=== PATIENT | female | born 1965 | race Caucasian/White ===

== ENCOUNTER → 2017-06-27 | Outpatient (CLI) | payer MEDICAID ==
[~2017-06-27] MED LIST: AMOX-559 PO; BENZ200C15 PO; CEPH-13 PO; CEPH500C24 PO; CHOL500025 PO; CYCL10TA29 PO; FAMO40TA8 PO; FLU45SYR25 IM ONLY; FURO-45 PO; IBUP-1687 PO; LEVO-85 PO; LEVO750T27 PO; LISI-362 PO; LISI20TA29 PO; MOMR ENA; MUPI22OI28 TP; OMEP40CA48 PO; OXYM-1 ENA; POTA-23 PO; SIMV10TA98 PO; VALA500T63 PO
== END ==
LOC: LAB 11:45
PROVIDERS: ATTEND Nurse Practitioner Family
DX: I10 Essential (primary) hypertension (principal); R94.6 Abnormal results of thyroid function studies; R79.89 Other specified abnormal findings of blood chemistry
CPT/HCPCS: 36415; 82306; 82310; 82374; 82435; 82565; 82947; 84132; 84295; 84443; 84520

== ENCOUNTER 2017-10-23 16:58 | Emergency (ER) | payer MEDICAID ==
[2017-10-23] MEDS ORDERED: NS(*) 0.9% 1000 ML BAG 1,000 ML IV ONE (17:11)
[2017-10-23] MEDS ORDERED: DILTIAZEM 5 MG/ML 5ML IVPUSH IVP ONE (17:15)
[2017-10-23] MEDS ORDERED: ASPIRIN 81 MG CHEW PO ONE (17:15)
[2017-10-23] MEDS ORDERED: DILTIAZEM HCL* 100 MG ADDVIAL 100 MG in NS(*) 0.9% 100 ML ADDVANT BAG 100 ML IV SCH (17:15)
--- NOTE | 2017-10-23 17:26 | EKG ---
FACILITY: [facility] PATIENT NAME: JULIO C TANG : [id number] MR: [id number] V: [id number] EXAM DATE: ORDERING PHYSICIAN: KATHLEEN DOSS TECHNOLOGIST: NOVA Hernandez Reason : PALPITATIONS Blood Pressure : / mmHG Vent. Rate : 157 BPM Atrial Rate : 166 BPM P-R Int : 000 ms QRS Dur : 076 ms QT Int : 296 ms P-R-T Axes : 000 066 023 degrees QTc Int : 478 ms Atrial fibrillation with rapid ventricular response ST abnormality, possible digitalis effect Abnormal ECG No previous ECGs available Confirmed by AYAD ANN ([id number]) on 10/24/2017 1:01:57 PM Referred By: FRANCISCO CLEMENS Confirmed By:AYAD ANN
[2017-10-23 17:33] LABS: PLATELET COUNT, AUTOMATED 233 K/uL (150-450)
--- NOTE | 2017-10-23 17:35 | ER Report ---
History and Physical Time Seen By MD: 17:00 Hx. of Stated Complaint: PT REPORTS FEELING HEART BEAT FAST HPI/ROS 52-year-old female a long-term type II of type II diabetic being treated for lymphedema has had redness and swelling in her right leg trace edema in her left. Tonight be getting to feel her heart racing has never had symptoms like this before at that point she came to the emergency room for treatment Allergies: Coded Allergies: codeine (Verified Allergy, Unknown, UNKNOWN, 03/27/16) Home Meds Active Scripts Lisinopril (LISINOPRIL) 20 Mg Tablet, 1 TAB PO QDAY, #90 TAB 0 Refills Prov:ALAN DAVILA APRN-C 10/23/17 Benzonatate (BENZONATATE) 200 Mg Capsule, 1 CAP PO TID Y for COUGH, #30 CAPSULE 0 Refills Prov:ALAN DAVILA APRN-C 07/30/17 Simvastatin (SIMVASTATIN) 10 Mg Tablet, 1 TAB PO HS, #90 TAB 3 Refills Prov:ALAN DAVILA APRN-C 06/13/17 Furosemide (FUROSEMIDE) 20 Mg Tablet, 1 TAB PO DAILY Y for lower leg swelling, # 30 TAB 5 Refills Prov:ALAN DAVILA APRN-C 03/29/17 Reported Medications Cholecalciferol (Vitamin D3) (VITAMIN D3) 5,000 Unit Tablet, 5000 UNIT PO BID, # 100 08/28/16 Ibuprofen (ADVIL) 200 Mg Tablet, 1-2 TAB PO Q6-8H 03/27/16 Oxymetazoline Hcl (AFRIN) 30 Ml [place], 2 SPR [place] BID, SPRAY 03/27/16 Discontinued Scripts Doxycycline Hyclate (DOXYCYCLINE HYCLATE) 100 Mg Capsule, 1 CAP PO BID, #20 CAPSULE 0 Refills Prov:ALAN DAVILA APRN-C 07/27/17 Cyclobenzaprine Hcl (CYCLOBENZAPRINE HCL) 10 Mg Tablet, 1 TAB PO TID Y for SPASMS, #30 TAB 2 Refills Prov:ALAN DAVILA APRN-C 07/27/17 Omeprazole (OMEPRAZOLE) 40 Mg Capsule.dr, 1 CAP PO QDAY, #90 CAP 3 Refills Prov:ALAN DAVILA APRN-C 04/03/17 Past Medical/Surgical History hypertension, diabetes, morbid obesity, lymphadema Reviewed Nurses Notes: Yes Hx Smoking: No Smoking Status: Never Smoker Exposure to Second Hand Smoke?: No Hx Substance Use Disorder: No Hx Alcohol Use: No Family History of: Cardiac Constitutional Vital Sign - Last 24 Hours 10/23/17 10/23/17 10/23/17 10/23/17 17:03 17:03 17:05 17:07 Temp 97.9 Pulse ??? 170 Resp 22 B/P (MAP) 165/126 165/126 (139) 135/103 (114) Pulse Ox 97 O2 Delivery Room Air 10/23/17 10/23/17 10/23/17 10/23/17 17:08 17:13 17:18 17:23 Pulse 140 147 130 110 Resp 20 13 Pulse Ox 97 97 98 97 10/23/17 10/23/17 10/23/17 10/23/17 17:28 17:30 17:33 17:38 Pulse 124 ? Resp 14 B/P (MAP) ???/??? (0395) Pulse Ox 81 10/23/17 10/23/17 10/23/17 10/23/17 17:41 17:43 17:48 17:50 Pulse 107 94 Resp 20 18 B/P (MAP) 131/92 (105) 120/85 (97) Pulse Ox 95 94 10/23/17 10/23/17 10/23/17 10/23/17 17:53 17:58 18:00 18:03 Pulse 92 92 91 Resp 12 15 16 B/P (MAP) 108/76 (87) Pulse Ox 94 95 95 10/23/17 10/23/17 10/23/17 10/23/17 18:08 18:10 18:13 18:18 Pulse 91 95 100 Resp 14 12 11 B/P (MAP) 137/94 (108) Pulse Ox 96 94 95 10/23/17 10/23/17 10/23/17 10/23/17 18:20 18:23 18:28 18:30 Pulse 93 97 Resp 17 24 B/P (MAP) 136/89 (105) 128/99 (109) Pulse Ox 96 96 10/23/17 10/23/17 10/23/1718 18:33 18:38 18:40 18:43 Pulse 96 96 97 Resp 21 13 20 B/P (MAP) 108/77 (87) Pulse Ox 95 95 96 10/23/17 10/23/17 10/23/17 10/23/17 18:48 18:50 18:53 18:58 Pulse 96 95 92 Resp 15 17 12 B/P (MAP) 113/73 (86) Pulse Ox 95 97 95 10/23/17 10/23/17 10/23/17 10/23/17 19:00 19:10 19:13 19:20 Pulse 97 Resp 15 B/P (MAP) 113/83 (93) 114/77 (89) 121/84 (96) Pulse Ox 96 10/23/17 10/23/17 10/23/17 10/23/17 19:28 19:30 19:40 19:43 Pulse 96 92 Resp 15 19 B/P (MAP) 102/70 (81) 117/80 (92) Pulse Ox 94 97 10/23/17 10/23/17 19:50 19:58 Pulse 121 Resp 37 B/P (MAP) 116/83 (94) Physical Exam General Appearance: [The patient is alert,has no immediate need for airway protection and no current signs of toxicity.] [ ] Eyes: Pupils equal and round no injection. Respiratory: Chest is non tender, lungs decreased bilateral bases. C cardiac tachycardic irregular rhythm [ ] Gastrointestinal: Abdomen is soft and non tender, no masses, bowel sounds normal. Musculoskeletal: Neck: Neck is supple and non tender. Extremities redness swelling right lower extremity Skin: No rashes or lesions. [ ] DIFFERENTIAL DIAGNOSIS: After history and physical exam differential diagnosis was considered for new onset afib r/o dvt [ ] Medical Decision Making Data Points Result Diagram: 10/23/17 1720 10/23/17 1720 Laboratory Hematology Test 10/23/17 17:05 10/23/17 17:20 Red Blood Count 5.32 M/uL (4.17-5.56) Mean Corpuscular Volume 83.4 fL (80.0-96.0) Mean Corpuscular Hemoglobin 28.0 pg (26.0-33.0) Mean Corpuscular Hemoglobin Concent 33.5 g/dL (32.0-36.0) Red Cell Distribution Width 16.4 % (11.5-14.5) Mean Platelet Volume 9.3 fL (7.2-11.1) Neutrophils (%) (Auto) 64.2 % (39.4-72.5) Lymphocytes (%) (Auto) 24.6 % (17.6-49.6) Monocytes (%) (Auto) 7.7 % (4.1-12.4) Eosinophils (%) (Auto) 2.0 % (0.4-6.7) Basophils (%) (Auto) 1.5 % (0.3-1.4) Nucleated RBC Relative Count (auto) 0.1 /100WBC Neutrophils # (Auto) 6.5 K/uL (2.0-7.4) Lymphocytes # (Auto) 2.5 K/uL (1.3-3.6) Monocytes # (Auto) 0.8 K/uL (0.3-1.0) Eosinophils # (Auto) 0.2 K/uL (0.0-0.5) Basophils # (Auto) 0.2 K/uL (0.0-0.1) Nucleated RBC Absolute Count (auto) 0.01 K/uL Prothrombin Time 13.0 seconds (12.0-14.4) Prothromb Time International Ratio 0.98 Activated Partial Thromboplast Time 29 seconds (23-35) D-Dimer Quantitative (PE/DVT) 1.30 ug/ml (0-0.50) Sodium Level 140 mmol/L (137-145) Potassium Level 3.7 mmol/L (3.5-5.0) Chloride Level 104 mmol/L (98-107) Carbon Dioxide Level 23 mmol/L (22-31) Blood Urea Nitrogen 15 mg/dl (7-18) Creatinine 1.00 mg/dl (0.52-1.04) Glomerular Filtration Rate Calc 58.0 Random Glucose 128 mg/dl (75-110) Calcium Level 9.5 mg/dl (8.4-10.2) Total Bilirubin 0.5 mg/dl (0.2-1.3) Aspartate Amino Transf (AST/SGOT) 26 U/L (0-35) Alanine Aminotransferase (ALT/SGPT) 24 U/L (0-56) Alkaline Phosphatase 112 U/L (0-126) Troponin I < 0.012 ng/ml B-Type Natriuretic Peptide 92 pg/ml (0-100) Total Protein 7.4 gm/dl (6.3-8.2) Albumin 3.9 g/dl (3.5-5.0) Human Chorionic Gonadotropin, Qual Negative (NEGATIVE) Chemistry Test 10/23/17 17:05 10/23/17 17:20 White Blood Count 10.1 k/uL (4.5-11.0) Red Blood Count 5.32 M/uL (4.17-5.56) Hemoglobin 14.9 g/dL (12.0-16.0) Hematocrit 44.4 % (34.0-47.0) Mean Corpuscular Volume 83.4 fL (80.0-96.0) Mean Corpuscular Hemoglobin 28.0 pg (26.0-33.0) Mean Corpuscular Hemoglobin Concent 33.5 g/dL (32.0-36.0) Red Cell Distribution Width 16.4 % (11.5-14.5) Platelet Count 233 K/uL (150-450) Mean Platelet Volume 9.3 fL (7.2-11.1) Neutrophils (%) (Auto) 64.2 % (39.4-72.5) Lymphocytes (%) (Auto) 24.6 % (17.6-49.6) Monocytes (%) (Auto) 7.7 % (4.1-12.4) Eosinophils (%) (Auto) 2.0 % (0.4-6.7) Basophils (%) (Auto) 1.5 % (0.3-1.4) Nucleated RBC Relative Count (auto) 0.1 /100WBC Neutrophils # (Auto) 6.5 K/uL (2.0-7.4) Lymphocytes # (Auto) 2.5 K/uL (1.3-3.6) Monocytes # (Auto) 0.8 K/uL (0.3-1.0) Eosinophils # (Auto) 0.2 K/uL (0.0-0.5) Basophils # (Auto) 0.2 K/uL (0.0-0.1) Nucleated RBC Absolute Count (auto) 0.01 K/uL Prothrombin Time 13.0 seconds (12.0-14.4) Prothromb Time International Ratio 0.98 Activated Partial Thromboplast Time 29 seconds (23-35) D-Dimer Quantitative (PE/DVT) 1.30 ug/ml (0-0.50) Glomerular Filtration Rate Calc 58.0 Calcium Level 9.5 mg/dl (8.4-10.2) Total Bilirubin 0.5 mg/dl (0.2-1.3) Aspartate Amino Transf (AST/SGOT) 26 U/L (0-35) Alanine Aminotransferase (ALT/SGPT) 24 U/L (0-56) Alkaline Phosphatase 112 U/L (0-126) Troponin I < 0.012 ng/ml B-Type Natriuretic Peptide 92 pg/ml (0-100) Total Protein 7.4 gm/dl (6.3-8.2) Albumin 3.9 g/dl (3.5-5.0) Human Chorionic Gonadotropin, Qual Negative (NEGATIVE) Coagulation Test 10/23/17 17:20 Prothrombin Time 13.0 seconds Prothromb Time International Ratio 0.98 Activated Partial Thromboplast Time 29 seconds D-Dimer Quantitative (PE/DVT) 1.30 ug/ml EKG/Imaging EKG Interpretation afib with rvr ED Course/Re-evaluation Clinical Indication for ER IV: Hydration ED Course Patient is morbidly obese has elevated d-dimer unable to do a CTA chest here because of her weight our machine takes up to 450 pound she is 514 pounds tonight but did talk to Dr. Dupree in the ER at [facility] Re-evaluation Cardizem 20 IV drip of 5 mg an hour heart rate is now in the 90s converting in and out of sinus rhythm. Discussed the patient with Dr. Dupree emergency room [facility] he agrees to accept this patient will transfer her by ALS ambulance Decision to Disposition Date: October 23, 2017 Decision to Disposition Time: 19:[address] Reyes emergency room [facility] Depart Departure Latest Vital Signs Vital Signs Date Time Temp Pulse Resp B/P (MAP) Pulse Ox O2 Delivery O2 Flow Rate FiO2 10/23/17 19:58 121 37 10/23/17 19:50 116/83 (94) 10/23/17 19:43 97 10/23/17 17:03 97.9 Room Air Impression: Primary Impression: Morbid obesity Additional Impressions: Atrial fibrillation with RVR Elevated d-dimer Leg edema Condition: Improved Disposition: XFER TO [facility] Referrals: ALAN DAVILA APRN-C (PCP) Problem Qualifiers KATHLEEN DOSS October 23, 2017 17:35
[2017-10-23 17:43] LABS: INR 0.98
--- NOTE | 2017-10-23 18:36 | RADIOLOGY IMAGING REPORT ---
FACILITY: [facility] PATIENT NAME: Thu Michelle : 1965 MR: [id number] V: [id number] EXAM DATE: ORDERING PHYSICIAN: KATHLEEN DOSS TECHNOLOGIST: Location: [facility] [place] Patient: Thu Michelle : 1965 Visit/Account:[id number] Date of Sevice: 10/23/2017 CHEST SINGLE AP Indication: Chest pain and tachycardia.. Comparison: None available Findings: Cardiomediastinal silhouette and pulmonary vessels within normal limits for the technique. There is no focal infiltrate or lobar consolidation. No pneumothorax or pleural effusion. Small nodular opacity seen in the lateral aspect left upper lobe. Upper abdomen is unremarkable. No a cute bony abnormality. IMPRESSION: 1. No acute cardiopulmonary process. 2. Left upper lobe nodule. This is nonspecific and could be a granuloma. However, as there are no shashi or exams, suggest a follow-up chest x-ray in 6 months for reevaluation. Report Dictated By: Fuad Naylor at 10/23/2017 6:30 PM Report E-Signed By: Fuad Naylor at 10/23/2017 6:32 PM WSN:[id number]
--- NOTE | 2017-10-23 19:37 | RADIOLOGY IMAGING REPORT ---
FACILITY: [facility] - [place] PATIENT NAME: Thu Michelle : 1965 MR: [id number] V: [id number] EXAM DATE: ORDERING PHYSICIAN: KATHLEEN DOSS TECHNOLOGIST: Location: [facility] - [place] Patient: Thu Michelle : 1965 Visit/Account:[id number] Date of Sevice: 10/23/2017 Bilateral lower extremity duplex venous ultrasound Indication: Leg swelling. Atrial fibrillation. Comparison: None Available Findings: Duplex Doppler and color flow imaging was performed. The bilateral common femoral, femoral , and popliteal veins are all patent and compressible with normal Doppler wave forms. There are norm al responses to augmentation. The bilateral posterior tibial and peroneal veins are clear. The proximal greater saphenous veins are also normal. Subcutaneous tissues are unremarkable. Impression: 1. No evidence of deep venous thrombosis of the bilateral lower extremities. Report Dictated By: Fuad Naylor at 10/23/2017 7:32 PM Report E-Signed By: Fuad Naylor at 10/23/2017 7:33 PM WSN:[id number]
[2017-10-23 19:50] VITALS: BP 116/83
--- NOTE | 2017-10-23 20:37 | EKG ---
FACILITY: [facility] - [place] PATIENT NAME: JULIO C TANG : [id number] MR: [id number] V: [id number] EXAM DATE: ORDERING PHYSICIAN: KATHLEEN DOSS TECHNOLOGIST: NATHANAEL Hernandez Reason : REPEAT EKG Blood Pressure : / mmHG Vent. Rate : 116 BPM Atrial Rate : 116 BPM P-R Int : 130 ms QRS Dur : 080 ms QT Int : 326 ms P-R-T Axes : 063 066 051 degrees QTc Int : 453 ms Sinus tachycardia Possible Left atrial enlargement R wave progression consistent with old ant/sep SC vs lead placement When compared with ECG of 23-OCT-2017 17:06, Sinus rhythm has replaced Atrial fibrillation Now with poor R wave progression Confirmed by AYAD ANN ([id number]) on 10/24/2017 1:07:59 PM Referred By: Confirmed By:AYAD ANN
== END 2017-10-23 20:10 | disposition short-term general hospital (02) ==
LOC: ER 17:22
DX: E66.01 Morbid (severe) obesity due to excess calories (principal); I48.2 Chronic atrial fibrillation; R79.89 Other specified abnormal findings of blood chemistry; R60.0 Localized edema; R00.2 Palpitations; R07.89 Other chest pain; R91.1 Solitary pulmonary nodule; E11.9 Type 2 diabetes mellitus without complications; I10 Essential (primary) hypertension
CPT/HCPCS: 71045; 83880; 84443; 84484; 84703; 85025; 85379; 85610; 85730; 93005; 93970; 96361; 96365; 96366; 99285; J3490; J7030; J7050; 82040; 82247; 82310; 82374; 82435; 82565; 82947; 84075; 84132; 84155; 84295; 84450; 84460; 84520

== ENCOUNTER → 2017-10-23 | Outpatient (CLI) | payer MEDICAID ==
[~2017-10-23] MED LIST changes: +DOXY-181 PO
== END ==
LOC: AMB 21:24
PROVIDERS: ATTEND Nurse Practitioner
DX: I48.91 Unspecified atrial fibrillation (principal); E66.9 Obesity, unspecified
CPT/HCPCS: A0425; A0433

== ENCOUNTER 2017-11-21 13:00 | Outpatient (RCR) | payer MEDICAID ==
--- NOTE | 2017-09-28 15:54 | PT INITIAL EVALUATION ---
MEDICAL DIAGNOSIS: Intragluteal Cleft Skin Breakdown TREATMENT DIAGNOSIS: Moisture Associated Skin Damage of the Intragluteal cleft DATE OF ONSET: SUBJECTIVE: The patient presents today with skin break down in the intragluteal cleft, superior to the anus. The patient reports that she is unsure of when the skin breakdown occurred, but that she has struggled with monthly "rashes" for about 2 years. She reports that she has seen various doctors and a copper miner blasting for treatment for these rashes but has not received a definitive solution. There is no rash present at the time of evaluation, but the pt provided a photo when present,which depicted diffuse erythema across bilateral gluts. The patient has been aggressively cleansing the area with hydrogen peroxide, baby wipes and Clorox wipes per report. REHAB PROBLEM LIST: Open wound, pain PREVIOUS MEDICAL HISTORY: Morbid obesity, elevated BP, dyslipidemia OBJECTIVE: Wound Measurements: 10 cm L x 0.3 cm W x 0.1 cm D ASSESSMENT: Pt presents with skin breakdown of the superior portion of the intragluteal cleft, which is likely moisture associated skin damage d/t increased friction and moisture between skin folds. The break down is partial thickness with good healthy pink tissue present in the wound base, with the wound extending 10 cm towards the anus. PT cleansed the area with dimethicone wipes and then completed conservative, selective debridement of non-viable tissue and devitalized skin from the wound edges with tweezers to the depth of the dermis. The wound was patted dry and then treated with zinc based moisture barrier cream. An ABD pad was folded and tucked into the cleft to assist with wicking away moisture. The patient was instructed to leave ABD pad in place and only change if it becomes saturated or soiled, at which time she should re-apply generous amounts of moisture barrier cream and insert a new ABD pad. The patient was instructed to avoid shear to the area, as well as any aggressive wiping. The patient verbalized understanding and was sent home with appropriate supplies, as well as written instructions. The patient will benefit from skilled PT wound care and education and will follow up 10/03/17 for re-assessment and continuation of care. Short Term Goals 1: Pt to demonstrate ability to appropriately apply moisture barrier cream to the affected area as needed. 2: Pt to demonstrated ability to effectively manage moisture to assist with wound healing. 3: Wound to gradually epithelialize from the edges inward and demonstrate 100% closure 4: Pt to be educated on prevention strategies to avoid further breakdown, as well as appropriate skin care management. Patient's Goals: Wound healing PLAN: Patient to be seen for PT wound care to include conservative sharps debridement as well as advanced wound care product selection and application and patient education for preventative skin care and management 1-2x/week for up to 90 days Thank you for this referral. If you have any questions, comments, or concerns about this report or plan, please contact me at . Suly Pandey, PT, DPT MTDD
--- NOTE | 2017-10-03 16:23 | PT PLAN OF CARE ---
Physician: Dr. Cortes Patient is being seen: Thu Michelle Therapist: Suly Pandey, PT, DPT Medical Diagnosis: Intragluteal Cleft Skin Breakdown Treatment Diagnosis: Moisture Associated Skin Damage of the Intragluteal cleft Date of Onset: Pt unsure Date of Initial Evaluation: 09/28/17 Date patient was last seen: 09/23/17 Number of treatments: 2 Number of cancellations/No shows: 0 INTERVENTIONS: The pt was seen for initial wound care evaluation with skilled sharps debridement. She was educated on the etiology of the wound as well as effective management in order to heal the wound. The patient demonstrated excellent compliance and the ability to continue to manage the skin breakdown until it reaches full closure. GOALS: 1: Pt to demonstrate ability to appropriately apply moisture barrier cream to the affected area as needed. 2: Pt to demonstrated ability to effectively manage moisture to assist with wound healing. 3: Wound to gradually epithelialize from the edges inward and demonstrate 100% closure 4: Pt to be educated on prevention strategies to avoid further breakdown, as well as appropriate skin care management. PATIENT'S GOAL: Wound healing Status of Patient's Goals: met Patient Compliance: Excellent Prognosis: Good Reasons for continuing therapy: None at this time. The patient's wound is healing nicely with drastic decrease in size. Skilled sharps debridement is no longer indicated and the patient demonstrates the ability to effectively manage the area at home. GLADIS
--- NOTE | 2017-10-04 10:54 | PT INITIAL EVALUATION ---
MEDICAL DIAGNOSIS: Obesity, Wound Care, Lymphedema TREATMENT DIAGNOSIS: Obesity, Wound Care, Lymphedema, Lipedema DATE OF ONSET: 10/04/17 SUBJECTIVE: Thu is a 52 year-old patient presenting to physical therapy with a chronic gradual decline in mobility and function secondary to increase in body weight and circumferential volume of the R LE resulting in onset of wounds. Pt reports that she use to walk frequently, but hasn't as much and now cannot tolerate much physical exercise at all. Pt reports swelling started in the R leg approximately 10 years ago following a spider bite on the R distal brandon. Pt reports that it was worse than it is now and previously had areas of yellow/clear liquid weeping. Currently it's just swollen and pt has multiple locations where skin-folds are causing irritation and wound generation. Pt is concurrently seeing wound care PT for wounds on the R popliteal fossa as well as gluteal wounds. Additionally pt reports occasional radiating pain down the R LE shooting from the back to the foot along the lateral aspect of the foot. Pain comes and goes and occasionally just results in tingling sensation or muscle cramping. REHAB PROBLEM LIST: Increased Pain Decreased ROM Impaired Bed Mobility Decreased Strength Impaired Transfers Decreased Endurance Decreased Balance Decreased Function Decreased ADL's Decreased Mobility Decreased Gait PREVIOUS MEDICAL HISTORY: See EMR OBJECTIVE: Pt has bilateral symmetrical swelling from the iliac crests down to the ankles with foot sparing. Pt R brandon additionally has increased circumferential volume between the knee and the ankle with darkened skin coloration and firm texture on the anterior brandon. Strength: Pt unable to perform SLR B. Palpation: 2+ Pitting edema is present on the R anterior brandon but is negative throughout the rest of the B LE. (-) Stemmer's sign on B toes and dorsum. Mobility: Pt requires increased time and B UE support for transfers from seated< >standing. Gait: Gait significant for decreased foot clearance, and shortened step length B L>R with wide BOBBI. Pt uses a walker for long distance ambulation, but otherwise ambulates without AD around the house. Other Objective Findings: Circumferential Measures: Dorsum of foot (cm): B 21.5 , Above Malleoli: R 31.5, L 28.7, Heel: R 37.1, L 34.7, Figure 8: R 60.2, 57.4 , 15cm above Malleoli: R 58, L 38.5, Widest Calf: R 71, L 55, Below Patella: R 74, L 66.4, Above patella: R 73.5, L 71.5, 10 cm above Patella: R 89.7, L 85. ASSESSMENT: Pt shows signs and symptoms consistent with generalized deconditioning with associated lipedema, as well as R LE venous insufficiency with lymphatic changes. Physical therapy is indicated for this patient to address the above listed deficits to decrease circumferential volume of the R LE, improve wound healing potential, and improve functional mobility with ADL' s. Short Term Goals In 3 weeks pt will be compliant with HEP for strengthening and decreased edema for improved function with ADL's. In 3 weeks pt will decrease circumferential volume of the R LE by 20% compared to that of the L LE for decreased mass and improved mobility with ADL's. In 6 weeks pt will decrease circumferential volume of the R LE by 40% compared to that of the L LE for decreased mass and improved mobility with ADL's. In 6 weeks pt will be able to ambulate 3 laps around the track without need for rest breaks for improved ambulation with ADL's. In 6 weeks pt will be able to perform 10 SLR of B LE for improved mobility with ADL's. Patient's Goals Improve functional ambulation and mobility, decrease circumferential volume of R LE. PLAN: Patient to be seen for Manual Therapy/STM/MET Strengthening/condition Ice/Heat Range of Motion Spinal Stabilization Ultrasound Stretching Iontophoresis Neuromuscular Re-ed Closed Chain Program Electrical Stim Posture/Body mechanics Gait Trg/Balance Trg Biofeedback Home Exercise Program Mech./Manual Traction Therapeutic Activities Pelvic Floor 3x/Week for 6 Weeks If you have any questions, comments, or concerns about this report or plan, please contact me at . Thank you, Nkechi Galvez, PT, DPT, CLT MTDD
--- NOTE | 2017-10-26 17:46 | PT PLAN OF CARE ---
Physician: Lana Cortes MD Patient is being seen: 3x/Week Therapist: Nkechi Galvez, PT, DPT, CLT Medical Diagnosis: Obesity, Wound Care, Lymphedema Treatment Diagnosis: Obesity, Wound Care, Lymphedema, Lipedema Date of Onset: 10/04/17 Date of Initial Evaluation: 10/03/17 Date patient was last seen: 10/24/17 Number of treatments: 9 Number of cancellations/No shows: 1 INTERVENTIONS: Manual Therapy/STM/MET Strengthening/condition Ice/Heat Range of Motion Spinal Stabilization Ultrasound Stretching Iontophoresis Neuromuscular Re-ed Closed Chain Program Electrical Stim Posture/Body mechanics Gait Trg/Balance Trg Biofeedback Home Exercise Program Mech./Manual Traction Therapeutic Activities Pelvic Floor GOALS: In 3 weeks pt will be compliant with HEP for strengthening and decreased edema for improved function with ADL's. MET In 3 weeks pt will decrease circumferential volume of the R LE by 20% compared to that of the L LE for decreased mass and improved mobility with ADL's. MET In 6 weeks pt will decrease circumferential volume of the R LE by 40% (64.6cm) compared to that of the L LE for decreased mass and improved mobility with ADL' s. In Progress In 6 weeks pt will be able to ambulate 3 laps around the track without need for rest breaks for improved ambulation with ADL's. MET In 6 weeks pt will be able to perform 10 SLR of B LE for improved mobility with ADL's. PATIENT'S GOAL: Improve functional ambulation and mobility, decrease circumferential volume of R LE. Status of Patient's Goals: In Progress Patient Compliance: Good Prognosis: Fair Reasons for continuing therapy: Thu shows progressive improvement with R LE circumferential reductions as well as improved functional mobility and ambulation. Thu is able to ambulate 6 laps around the track without rest breaks with use of FWW. Thu shows improved strength with performance of HEP regularly. Recently pt developed a rash extending from the sacrum and intergluteal crease to the lateral buttocks with increased redness on the R and with deep coloration. The most medial aspects surrounding the crease included intact blistering. Pt also had a fever of 101.2 when measured. Areas of redness were demarcated with permanent marker to monitor spread and pt was referred to PCP or urgent care for further treatment. Strength: Pt unable to perform SLR B. Palpation: 2+ Pitting edema is present on the R anterior brandon but is negative throughout the rest of the B LE. (-) Stemmer's sign on B toes and dorsum. Mobility: Pt requires increased time and B UE support for transfers from seated< >standing. Gait: Gait significant for decreased foot clearance, and shortened step length B L>R with wide BOBBI. Pt uses a walker for long distance ambulation, but otherwise ambulates without AD around the house. Other Objective Findings: Circumferential Measures (Initial Eval): Dorsum of foot (cm): B 21.5, Above Malleoli: R 31.5, L 28.7, Heel: R 37.1, L 34.7, Figure 8: R 60.2, 57.4, 15cm above Malleoli: R 58, L 38.5, Widest Calf: R 71, L 55, Below Patella: R 74, L 66.4, Above patella: R 73.5, L 71.5, 10 cm above Patella: R 89.7, L 85. Circumferential Measures 10/26/17: Dorsum of foot (cm): B 21.5, Above Malleoli : R 29.9, L 28.7, Heel: R 36.0, L 34.7, Figure 8: R 58.0, 57.4, 15cm above Malleoli: R 58, L 38.5, Widest Calf: R 68, L 55, Below Patella: R 63.5, L 66.4 , Above patella: R 75.5, L 71.5, 10 cm above Patella: R 87.5, L 85. If you have any questions or concerns, please feel free to contact me at . Thank you, Nkechi Galvez, PT, DPT, CLT MTDD
== END 2017-12-27 ==
LOC: PT 13:00
PROVIDERS: ATTEND Family Medicine
DX: M79.1 Myalgia (principal); R03.0 Elevated blood-pressure reading, without diagnosis of hypertension; E78.5 Hyperlipidemia, unspecified; Z68.45 Body mass index [BMI] 70 or greater, adult; E66.9 Obesity, unspecified; R60.0 Localized edema; I87.2 Venous insufficiency (chronic) (peripheral); X58.XXXA Exposure to other specified factors, initial encounter; I89.0 Lymphedema, not elsewhere classified
CPT/HCPCS: 97161; 97162

== ENCOUNTER → 2017-11-22 | Outpatient (CLI) | payer MEDICAID | LOC: US 01:10 | PROVIDERS: ATTEND Internal Medicine Cardiovascular Disease | DX: I34.0 Nonrheumatic mitral (valve) insufficiency (principal); I07.1 Rheumatic tricuspid insufficiency | CPT/HCPCS: 93306 ==

== ENCOUNTER 2018-04-03 10:30 | Outpatient (RCR) | payer MEDICAID ==
--- NOTE | 2018-03-13 12:49 | PT INITIAL EVALUATION ---
MEDICAL DIAGNOSIS: Lymphedema, Lumbago, Morbid Obesity TREATMENT DIAGNOSIS: Lymphedema, Lumbago, Morbid Obesity, Generalized Weakness DATE OF ONSET: 03/11/18 SUBJECTIVE: Thu is a 52 year old female presenting to physical therapy for progressive improved function with chronic conditions including morbid obesity, lymphedema of the R LE, and low back pain. Pt currently weighs 500#, but has been slowly loosing weight at at rate of 5# per month for a total of approximately 17# of weight loss so far. Additionally, pt was previously treated for lymphedema and wears independent compression wrap garment on the distal R LE for maintenance of LE volume and circumference. Pt shows slight return of edema since her last discharge, however pt skin integrity remains good without any wounds of the LE as well significantly decreased from initial status. Pt reports occasional low back pain centrally located that increases with prolonged standing and sitting. Pain is not present currently, but pt reports it feeling like fatigue and achy. Additionally pt reports onset of new wound which is healing, but remains present on the R gluteal fold. Pt and are currently managing care with zinc ointment and bandages in skin fold. Pt has a history of wounds s/p skin folds from lymphedema as well as obesity. REHAB PROBLEM LIST: Increased Pain Decreased ROM Impaired Bed Mobility Decreased Strength Impaired Transfers Decreased Endurance Decreased Balance Decreased Function Decreased ADL's Decreased Mobility Decreased Gait PREVIOUS MEDICAL HISTORY: See EMR OCCUPATION: OBJECTIVE: Pt is morbidly obese with a android body type with B symmetrical adipose starting just above B iliac crest extending down to the ankles. Pt has increased edema on the R LE from just above the knee to above the ankle. ROM: LE ROM WFL, hip flexion limited by abdominal obesity Strength: LE MMT: Hip: flex: R 4-/5, L 4/5, ext: B 4-/5, abd: B 4/5, add: 4-/5. Knee: ext: B 4-/5 with clicking on the R, flex: R 4-/5, L 4+/5. Ankle: PF: B 2+/5, DF: R 4/5, L 4+/5. Palpation: Wound not inspected at this time secondary to time constraints. To be assessed and next session. Special Tests: Pt has B lateral patellar tracking with R>L with decreased medial quad activation. Mobility: 5 times sit<>stand from a 54cm height with use of B UE on lap: 27 sec. Gait: Pt ambulates with shortened stride length and foot clearance with a SPC for support. Pt can only ambulate 1 lap at this time secondary to need for rest break. ASSESSMENT: Pt shows signs and symptoms consistent with generalized weakness and deconditioning secondary to low back pain and increased BMI influenced by lymphedema, lipedema and obesity. Physical therapy is indicated for this patient to address the above listed deficits to increase functional mobility and community mobility with ADL's. Short Term Goals In 3 weeks pt will increase LE strength to 4/5 or greater in all motions excluding PF to 3+/10 for improved function with ambulation and ADL's. In 6 weeks pt will improve 5x sit<>stand from a 54 cm height to without use of B UE on lap and <20 seconds for improved function with transfers and ADL's. In 6 weeks pt will be able to walk 5 laps around the track with SPC and without rest breaks for improved community and household mobility. In 6 weeks pt will have full healing of wounds with full granulation for improved function with ADL's. In 6 weeks pt will be compliant with HEP to maintain lymphatic gains as well as functional strength and mobility gains with ADL's. Patient's Goals Increase function with ADL's. PLAN: Patient to be seen for Manual Therapy/STM/MET Strengthening/condition Ice/Heat Range of Motion Spinal Stabilization Ultrasound Stretching Iontophoresis Neuromuscular Re-ed Closed Chain Program Electrical Stim Posture/Body mechanics Gait Trg/Balance Trg Biofeedback Home Exercise Program Mech./Manual Traction Therapeutic Activities Pelvic Floor 2x/Week for 6 Weeks If you have any questions, comments, or concerns about this report or plan, please contact me at . Thank you, Nkechi Galvez, PT, DPT, CLT MTDD
== END 2018-06-09 ==
LOC: PT 10:30
PROVIDERS: ATTEND Nurse Practitioner Family
DX: M54.5 Low back pain (principal); I89.0 Lymphedema, not elsewhere classified; Z68.45 Body mass index [BMI] 70 or greater, adult
CPT/HCPCS: 97162

== ENCOUNTER → 2018-10-10 | Outpatient (CLI) | payer MEDICAID ==
[~2018-10-10] MED LIST changes: +APIX5TAB PO; +LEVO25TA61 PO; +METF-450 PO; +METO25TA93 PO; +OMEP-125 PO; +TRAM-420 PO
[2018-10-10 14:59] LABS: PLATELET COUNT, AUTOMATED 399 K/uL (150-450)
[2018-10-10 15:09] LABS: LDL CHOLESTEROL 109 mg/dl
== END ==
LOC: LAB 14:31
PROVIDERS: ATTEND Emergency Medicine
DX: E78.5 Hyperlipidemia, unspecified (principal); I48.91 Unspecified atrial fibrillation; E55.9 Vitamin D deficiency, unspecified; D64.9 Anemia, unspecified
CPT/HCPCS: 36415; 82040; 82247; 82306; 82310; 82374; 82435; 82465; 82565; 82607; 82947; 83036; 83540; 83550; 83718; 84075; 84132; 84155; 84295; 84443; 84450; 84460; 84478; 84520; 85025